=== PATIENT | male | born 1975 | race Caucasian/White ===

== ENCOUNTER 2017-12-07 10:52 | Emergency (ER) | payer OTHER ==
[~2017-12-07] VITALS: Ht 188 cm; Wt 127.6 kg
[~2017-12-07 10:52] MED LIST: CEFD300C3 PO; CLAR500T38 PO; OMEP20CA9 PO; ONDA4TAB7 SL; PRED20TA PO; TSSP PO
[2017-12-07 10:55] VITALS: TEMP 36.8; Ht 188 cm; Wt 127.6 kg
[2017-12-07 11:05] VITALS: O2SAT 94
[2017-12-07] MEDS ORDERED: LORAZEPAM 2 MG/ML 1 ML VIAL IV STA (11:15)
[2017-12-07 11:27] LABS: HEMATOCRIT 43.5 % (42-52); MEAN CELL VOLUME 84.5 fL (80-100); MEAN CORPUSCULAR HEMOGLOBIN 31.1 pg (25-34); MEAN CORPUSCULAR HGB CONC 36.8 g/dl (32-36); MEAN PLATELET VOLUME 10.1 fL (7.4-10.4); PLATELET COUNT 221 K/uL (130-400); RED CELL DISTRIBUTION WIDTH CV 12.5 % (11.5-14.5); RED CELL DISTRIBUTION WIDTH SD 37.9 fL (36.4-46.3); WHITE BLOOD COUNT 9.36 K/uL (4.8-10.8)
--- NOTE | 2017-12-07 11:38 | DIAGNOSTIC IMAGING REPORT ---
CHEST ONE VIEW PORTABLE CLINICAL HISTORY: CHEST PAIN dyspnea COMPARISON STUDY: 10/21/2014 FINDINGS: The bones soft tissues and hemidiaphragms are normal. The cardiomediastinal silhouette is normal. The lungs are clear. The pulmonary vasculature is normal. IMPRESSION: Negative chest. The above report was generated using voice recognition software. It may contain grammatical, syntax or spelling errors. Electronically signed by: Abdi Wells M.D. 12/07/2017 11:36 AM Dictated Date/Time: 12/07/2017 11:36 AM
[2017-12-07 11:39] LABS: PTT PATIENT 26.7 SECONDS (21.0-31.0)
[2017-12-07 11:46] LABS: CALCIUM 8.7 mg/dl (8.5-10.1); CREATININE 1.05 mg/dl (0.60-1.40); POTASSIUM 3.7 mmol/L (3.5-5.1)
[2017-12-07] MEDS ORDERED: PRLSR20 PO (11:59)
[2017-12-07] MEDS ORDERED: CLON1TAB3 PO (11:59)
[2017-12-07] MEDS ORDERED: DICY10CA12 PO (11:59)
--- NOTE | 2017-12-07 12:20 | EMERGENCY ROOM VISIT NOTE ---
History Report prepared by Sandro: Jeet Suazo Under the Supervision of: Dr. Devin Cohen M.D. First contact with patient: 11:03 Chief Complaint: CARDIAC ASSESSMENT Stated Complaint: RAPID HEART BEAT,FLUSH,HOT AND COLD,HEAD HOLLEY History of Present Illness The patient is a 42 year old male who presents to the Emergency Room with complaints of a resolved episode of 7-8 slow, hard, heart beats that occurred 1.5 hours ago. The patient states he was logging visitors into the computer at [facility] when he developed a hollow feeling in his chest. He reports the 7-8 slow, hard heart beats followed. The patient notes his vision went white and he developed a holley of warmth thorough his body. He states afterwards he got chills and a tingling sensation through his extremities. The patient reports he has a history of this very long ago before and was not told why it happened. He notes he has a history of anxiety. The patient states he recently drove two hours away and back. He reports he takes medication for acid reflux, anxiety, and diverticulitis. The patient denies chest pain, new stressors, a history of an FL, a history of HTN, and a history or family history of blood clots in the legs or lungs. Review of the patient's chart shows he reported feeling an "impending doom" today and his blood glucose was 120 at [facility]. Source of History: patient Onset: 1.5 hours ago Symptom Intensity: 7-8 beats Quality: other (slow, hard, heart beats ) Timing: resolved Associated Symptoms: + chills, No chest pain Note: Associated symptoms: hallow feeling in his chest, white vision, warmth through the body, tingling sensation through extremities Denies: new stressors Review of Systems See HPI for pertinent positives & negatives. A total of 10 systems reviewed and were otherwise negative. Past Medical & Surgical Medical Problems: (1) Anxiety (2) Anxiety (3) Bronchitis (4) Chest pain (5) Dizziness (6) Dizziness (7) Dizziness (8) GERD (gastroesophageal reflux disease) (9) Hiatal hernia (10) Hypertension (11) Pneumonia Family History Cancer Diabetes mellitus FH: CVA (cerebrovascular accident) FH: FL (myocardial infarction) Gallbladder disease Heart disease Hypertension Kidney disease Kidney stones Lung disease Social History Smoking Status: Never Smoker Alcohol Use: occasionally Marital Status: Housing Status: lives with family Occupation Status: employed Current/Historical Medications Scheduled Clonazepam (Klonopin), 2 MG PO HS Dicyclomine Hcl (Dicyclomine Hcl), 2 CAP PO TID Omeprazole (Prilosec), 20 MG PO DAILY Allergies Coded Allergies: No Known Allergies (Unverified , 10/21/14) Physical Exam Vital Signs Date Time Temp Pulse Resp B/P (MAP) Pulse Ox O2 Delivery O2 Flow Rate FiO2 12/07/17 13:20 88 18 126/85 99 Room Air 12/07/17 12:25 83 18 129/94 95 Room Air 12/07/17 11:23 97 Room Air 12/07/17 11:15 74 18 144/97 94 Room Air 12/07/17 11:14 75 12/07/17 11:05 94 Room Air 12/07/17 10:55 36.8 96 18 146/90 95 Room Air Physical Exam GENERAL: Patient is in no acute distress. HEENT: No acute trauma, normocephalic atraumatic, mucous membranes moist, no nasal congestion, no scleral icterus. NECK: No stridor, no adenopathy, no meningismus, trachea is midline. LUNGS: Clear to auscultation bilaterally, no wheeze, no rhonchi, breath sounds equal. HEART: Without murmurs gallops or rubs, regular rate and rhythm. ABDOMEN: Soft, nontender, bowel sounds positive, no hernias, no peritonitis. EXTREMITIES: No cyanosis or edema, full range of motion of all the joints without pain or difficulty, no signs for acute trauma. NEUROLOGIC: Oriented x 3, no acute motor or sensory deficits, no focal weakness. SKIN: No rash, no jaundice, no diaphoresis. Medical Decision & Procedures ER Provider Diagnostic Interpretation: X-ray results as stated below per interpretation by me and the radiologist: CHEST ONE VIEW PORTABLE CLINICAL HISTORY: CHEST PAIN dyspnea COMPARISON STUDY: 10/21/2014 FINDINGS: The bones soft tissues and hemidiaphragms are normal. The cardiomediastinal silhouette is normal. The lungs are clear. The pulmonary vasculature is normal. IMPRESSION: Negative chest. The above report was generated using voice recognition software. It may contain grammatical, syntax or spelling errors. Electronically signed by: Abdi Wells M.D. 12/07/2017 11:36 AM Dictated Date/Time: 12/07/2017 11:36 AM Laboratory Results 12/07/17 11:00 12/07/17 11:00 Test 12/07/17 11:00 12/07/17 11:18 12/07/17 13:07 Red Blood Count 5.15 M/uL (4.7-6.1) Mean Corpuscular Volume 84.5 fL (80-100) Mean Corpuscular Hemoglobin 31.1 pg (25-34) Mean Corpuscular Hemoglobin Concent 36.8 g/dl (32-36) RDW Standard Deviation 37.9 fL (36.4-46.3) RDW Coefficient of Variation 12.5 % (11.5-14.5) Mean Platelet Volume 10.1 fL (7.4-10.4) Prothrombin Time 10.5 SECONDS (9.0-12.0) Prothromb Time International Ratio 1.0 (0.9-1.1) Activated Partial Thromboplast Time 26.7 SECONDS (21.0-31.0) Partial Thromboplastin Ratio 1.0 Anion Gap 3.0 mmol/L (3-11) Est Creatinine Clear Calc Drug Dose 131.5 ml/min Estimated GFR () 101.7 Estimated GFR (Non- 87.7 BUN/Creatinine Ratio 15.1 (10-20) Calcium Level 8.7 mg/dl (8.5-10.1) Magnesium Level 1.9 mg/dl (1.8-2.4) Thyroid Stimulating Hormone (TSH) 0.781 uIu/ml (0.300-4.500) Bedside D-Dimer 380 ng/mlFEU (0-450) Bedside Troponin I < 0.030 ng/ml (0-0.045) Laboratory results reviewed by me. Medications Administered Medications (Trade) Dose Ordered Sig/Aguilar Route Start Time Stop Time Status Last Admin Dose Admin Lorazepam (Ativan Inj) 1 mg NOW STAT IV 12/07/17 11:15 12/07/17 11:18 DC 12/07/17 11:23 1 MG ECG Per My Interpretation Indication: palpitations Rate (beats per minute): 74 Rhythm: normal sinus Findings: no ectopy, other (No ST elevation. No PVC.) ED Course 1106: The patient was evaluated in room C09. A complete history and physical exam was performed. 1115: Ordered Lorazepam 1mg IV 1324: Reevaluated the patient. Discussed results and discharge instructions: he verbalized understanding and agreement. The patient is ready for discharge. Medical Decision The patient is a 42 year old male who presents to the ED with complaints of episode of 7-8 slow, hard, heart beats. Differential diagnoses considered include anxiety or panic attack, atrial fibrillation or atrial flutter, FL, PE, electrolyte imbalance, anemia, dysrhythmia. There is no leukocytosis or concerning anemia. No significant electrolyte abnormality or kidney failure. EKG shows a normal sinus rhythm, no acute ischemia, no dysrhythmia. Cardiac enzyme testing 2 is not consistent with acute cardiac injury. Chest film does not show mediastinal widening, pneumonia or pneumothorax. D-dimer testing was negative. With a negative d-dimer and my low suspicion for PE, I will stop the workup for this diagnosis. The patient was anxious upon arrival, he carries a history of anxiety. He did receive IV Ativan, this helped him significantly. The patient's workup is unrevealing. I suspect this was anxiety or panic, he has a history of the same. No worrisome findings noted. The patient was reassured, he is being discharged with outpatient follow-up. Medication Reconcilliation Current Medication List: was personally reviewed by me Blood Pressure Screening Patient's blood pressure: Normal blood pressure Blood pressure disposition: Did not require urgent referral Impression Primary Impression: Palpitations Scribe Attestation The scribe's documentation has been prepared under my direction and personally reviewed by me in its entirety. I confirm that the note above accurately reflects all work, treatment, procedures, and medical decision making performed by me. Departure Information Dispostion Home / Self-Care Referrals Sylvester James PA-C (PCP) Forms IMPORTANT VISIT INFORMATION, Work Instructions Patient Instructions My [facility] Additional Instructions heart and lung testing was all ok chest film was ok follow with geena flood this week for a reheck return if worsening
[2017-12-07 13:20] VITALS: BP 126/85; PULSE 88; O2SAT 99
== END 2017-12-07 13:45 | disposition home or self-care (01) ==
LOC: C.EDB 10:54 → C.EDC 13:45
DX: R00.2 Palpitations (principal); K21.9 Gastro-esophageal reflux disease without esophagitis; F41.9 Anxiety disorder, unspecified; I10 Essential (primary) hypertension; Z87.01 Personal history of pneumonia (recurrent); Z83.3 Family history of diabetes mellitus; Z82.3 Family history of stroke; Z82.49 Family history of ischemic heart disease and other diseases of the circulatory system; Z84.1 Family history of disorders of kidney and ureter; Z79.899 Other long term (current) drug therapy

== ENCOUNTER → 2017-12-24 | Outpatient (CLI) | payer OTHER ==
[~2017-12-24] MED LIST changes: -CEFD300C3 PO; -CLAR500T38 PO; +CLON1TAB3 PO; +DICY10CA12 PO; -OMEP20CA9 PO; -ONDA4TAB7 SL; -PRED20TA PO; +PRLSR20 PO; -TSSP PO
--- NOTE | 2017-12-24 08:12 | DIAGNOSTIC IMAGING REPORT ---
DOUBLE CONTRAST UPPER GI SERIES CLINICAL HISTORY: Gastroesophageal reflux disease. COMPARISON STUDY: Chest CT dated 07/18/2013. TECHNIQUE: A standard air contrast upper GI series was performed. Spot images of the esophagus and stomach were obtained in multiple obliquities both upright and prone. FINDINGS: The patient swallowed barium without difficulty. The esophagus is structurally normal without evidence of intrinsic or extrinsic mass. The esophageal mucosal pattern is normal. No gastroesophageal reflux was elicited by having the patient perform the Valsalva maneuver. The gastroesophageal junction distends normally. There is a tiny sliding-type hiatal hernia. The stomach is otherwise normal in configuration and demonstrates normal distensibility. No mass or ulceration is identified. There was no evidence of gastritis. The duodenal bulb and sweep are unremarkable. Fluoroscopy time: 2.7 minutes Fluoroscopic images: 23 IMPRESSION: Tiny hiatal hernia. Otherwise normal fluoroscopic upper GI series. Electronically signed by: Devin Andrade M.D. 12/24/2017 8:11 AM Dictated Date/Time: 12/24/2017 8:09 AM
== END | disposition home or self-care (01) ==
LOC: C.RAD 07:16
PROVIDERS: ATTEND Nurse Practitioner Family
DX: K21.9 Gastro-esophageal reflux disease without esophagitis (principal); K44.9 Diaphragmatic hernia without obstruction or gangrene